=== PATIENT | female | born 1995 | race Caucasian/White ===

== ENCOUNTER 2016-10-18 21:35 | Emergency (ER) | payer MEDICAID ==
[2016-10-18] MEDS ORDERED: diphenhydrAMINE 25 MG CAPSULE PO STA (22:15)
[2016-10-18] MEDS ORDERED: DEXAMETHASONE 10 MG/ML VIAL PO STA (22:15)
[2016-10-18] MEDS ORDERED: CETIRIZINE 10 MG TABLET PO STA (22:15)
[2016-10-18] MEDS ORDERED: DEXAMETHASONE 10 MG/ML VIAL ONE (22:23)
[2016-10-18] MEDS ORDERED: diphenhydrAMINE 25 MG CAPSULE PO ONE (22:23)
[2016-10-18] MEDS ORDERED: CETIRIZINE 10 MG TABLET ONE (22:23)
[2016-10-18] MEDS ORDERED: CHERRY SYRUP 10 ML UDC PO ONE (22:23)
== END 2016-10-18 22:30 | disposition home or self-care (01) ==
DX: O99.711 Diseases of the skin and subcutaneous tissue complicating pregnancy, first trimester (principal); L50.9 Urticaria, unspecified; Z3A.11 11 weeks gestation of pregnancy
CPT/HCPCS: 99283; A9270

== ENCOUNTER 2016-11-05 20:19 | Outpatient (CLI) | payer MEDICAID | END 2016-11-05 20:20 | disposition home or self-care (01) | DX: Z36 Encounter for antenatal screening of mother (principal) ==

== ENCOUNTER 2016-11-27 15:07 | Outpatient (CLI) | payer MEDICAID | END 2016-11-27 15:08 | disposition home or self-care (01) | DX: Z36 Encounter for antenatal screening of mother (principal) ==

== ENCOUNTER 2016-11-29 19:07 | Emergency (ER) | payer MEDICAID ==
[2016-11-29] MEDS ORDERED: ACETAMINOPHEN 325 MG TABLET PO STA (19:22)
[2016-11-29] MEDS ORDERED: ONDANSETRON ODT 4 MG TABLET TL STA (19:22)
[2016-11-29] MEDS ORDERED: ONDANSETRON ODT 4 MG TABLET ONE (19:24)
[2016-11-29] MEDS ORDERED: ACETAMINOPHEN 325 MG TABLET PO ONE (19:25)
== END 2016-11-29 20:17 | disposition home or self-care (01) ==
DX: S30.0XXA Contusion of lower back and pelvis, initial encounter (principal); W01.0XXA Fall on same level from slipping, tripping and stumbling without subsequent striking against object, initial encounter; Y93.01 Activity, walking, marching and hiking; Y92.828 Other wilderness area as the place of occurrence of the external cause; O26.892 Other specified pregnancy related conditions, second trimester; Z3A.17 17 weeks gestation of pregnancy
CPT/HCPCS: 81003; 99283; 99284; A9270; Q0162

== ENCOUNTER 2016-12-24 07:26 | Outpatient (CLI) | payer MEDICAID | END 2016-12-24 07:27 | disposition home or self-care (01) | DX: Z34.82 Encounter for supervision of other normal pregnancy, second trimester (principal) ==

== ENCOUNTER 2017-03-09 14:20 | Outpatient (CLI) | payer MEDICAID ==
[2017-03-09 15:48] LABS: BASOPHILS # (AUTO) 0.1 10^3/uL (0.0-0.1); BASOPHILS % (AUTO) 0.8 %; EOSINOPHILS # (AUTO) 0.1 10^3/uL (0.0-0.7); EOSINOPHILS % (AUTO) 0.6 %; HCT - HEMATOCRIT 33.9 % (37.0-47.0); HGB - HEMOGLOBIN 11.3 g/dL (12.0-16.0); LYMPHOCYTES # (AUTO) 1.7 10^3/uL (1.5-3.5); LYMPHOCYTES % (AUTO) 10.9 %; MEAN CORPUSCULAR HEMOGLOBIN 26.6 pg (27.0-31.0); MEAN CORPUSCULAR HGB CONC 33.2 g/dL (32.0-36.0); MEAN CORPUSCULAR VOLUME 80.2 fL (81.0-99.0); MEAN PLATELET VOLUME 8.1 fL (7.9-10.8); MONOCYTES % (AUTO) 6.3 %; NEUTROPHILS # (AUTO) 12.3 10^3/uL (1.5-6.6); NEUTROPHILS % (AUTO) 81.4 %; RED BLOOD COUNT 4.23 10^6/uL (4.20-5.40); RED CELL DISTRIBUTION WIDTH 13.3 % (12.0-15.0); UNCORRECTED WHITE BLOOD COUNT 15.1 x10^3/uL; WHITE BLOOD COUNT 15.1 x10^3/uL (4.8-10.8)
== END 2017-03-09 14:21 | disposition home or self-care (01) ==
LOC: LAB 14:20
PROVIDERS: ATTEND Obstetrics & Gynecology
DX: Z34.90 Encounter for supervision of normal pregnancy, unspecified, unspecified trimester (principal)
CPT/HCPCS: 36415; 82950; 85025; 86850

== ENCOUNTER 2017-04-11 08:21 | Outpatient (CLI) | payer MEDICAID ==
--- NOTE | 2017-04-12 08:56 | Ultrasound Report ---
OB ULTRASOUND: 04/11/2017 CLINICAL INDICATION: Size greater than dates. TECHNIQUE: Real-time scanning was performed with hardware supplies sales representative static images obtained. LAST MENSTRUAL PERIOD 07/29/2016 Clinical Age 36 weeks 4 days US Age 37 weeks 0 days EFW Hadlock 3260 g EFW% Hadlock 80% Heart Rate 139 bpm EDC 05/05/2017 US EDC 05/02/2017 BPD Hadlock 35 weeks 1 day; Mean mm 87.1 HC Hadlock 37 weeks 3 days; Mean mm 329.3 AC Hadlock 38 weeks 5 days; Mean mm 347.8 FL Hadlock 36 weeks 4 days; Mean mm 71.3 Presentation cephalic Placental Location posterior Cervical Length 4.2 cm Amniotic Fluid 18.4 cm FINDINGS: There is a single viable intrauterine gestation, in cephalic presentation. heart rate is 139 BPM. The placenta is posterior, without evidence of previa. Amniotic fluid volume is normal, with an DEAN of 18.4. By size, the fetus measures 37.0 weeks (36.6 weeks by LMP). No free fluid or adnexal lesion is seen. IMPRESSION: SINGLE VIABLE INTRAUTERINE GESTATION, WITH SIZE IN KEEPING WITH LMP DATING. NORMAL DEAN. MTDD
== END 2017-04-11 08:22 | disposition home or self-care (01) ==
LOC: DI 08:21
PROVIDERS: ATTEND Obstetrics & Gynecology
DX: O36.63X1 Maternal care for excessive fetal growth, third trimester, fetus 1 (principal)
CPT/HCPCS: 76816

== ENCOUNTER 2017-04-12 08:00 | Outpatient (CLI) | payer MEDICAID | END 2017-04-12 23:59 | disposition home or self-care (01) | LOC: LAB.R 08:00 | PROVIDERS: ATTEND Obstetrics & Gynecology | DX: Z36 Encounter for antenatal screening of mother (principal) | CPT/HCPCS: 87081 ==

== ENCOUNTER 2017-05-04 19:13 | Outpatient (CLI) | payer OTHER, MEDICAID ==
[2017-05-04 19:52] VITALS: BP 111/76
--- NOTE | 2017-05-04 22:39 | Ultrasound Preliminary Report ---
Exam: US OB Limited IMPRESSION: 1. Single live intrauterine gestation measuring 39 weeks 3 days with a due date of 05/08/2017. Size e quals dates. 2. Amniotic fluid index is at the upper limits of normal. 3. Biophysical profile score is 8 out of 8. [facility] SITE ID: [id number]
--- NOTE | 2017-05-04 22:40 | Ultrasound Preliminary Report ---
Exam: US OB Biophysical Profile IMPRESSION: 1. Single live intrauterine gestation measuring 39 weeks 3 days with a due date of 05/08/2017. Size e quals dates. 2. Amniotic fluid index is at the upper limits of normal. 3. Biophysical profile score is 8 out of 8. [facility] SITE ID: [id number]
--- NOTE | 2017-05-05 00:46 | Ultrasound Report ---
EXAM: OBSTETRIC ULTRASOUND FOLLOWUP BIOPHYSICAL PROFILE. EXAM DATE: 05/04/2017 08:44 PM. CLINICAL HISTORY: weight assessment. Decreased movement. Amniotic fluid index assessment. COMPARISONS: None. TECHNIQUE: Real-time scanning performed with static images. Both color-flow and Doppler technology we re utilized. FINDINGS: Established due date: 05/08/2017 Estimated gestational age: 39 weeks 3 days. Single live intrauterine gestation is noted in cephalic orientation. Shadowing from the head ob scures visualization of the cervix. heart rate was at 169 BPM. Detailed anatomic assessme nt is not performed at this time. Visualized body parts are without gross abnormality. Amniotic fluid index measures 22.5 cm, at the upper limits of normal. Largest pocket measures 5.5 cm. biometric parameters are relatively concordant. BPD: 9.5 cm, 39.0 weeks 0 days HC: 34.8 cm, OOR weeks AC: 38.9 cm, OOR weeks FL: 7.7 cm, 39.9 weeks 6 days EFW: 4409 gms EFW%: 98% AUA: 39 weeks 3 days JADEN: 05/08/2017 weight is at 98th percentile. BIOPHYSICAL PROFILE: Biophysical profile score is 8 out of 8. IMPRESSION: 1. Single live intrauterine gestation measuring 39 weeks 3 days with a due date of 05/08/2017. Size e quals dates. 2. Amniotic fluid index is at the upper limits of normal. 3. Biophysical profile score is 8 out of 8. [facility] Referring Provider Line: [phone] SITE ID: [id number]
--- NOTE | 2017-05-06 07:15 | HISTORY & PHYSICAL EXAMINATION ---
DATE OF ADMISSION: 05/04/2017 DIAGNOSES 1. Suspected leakage of membranes. 2. A 39-week 3-day gestation. 3. Morbid obesity, BMI 39.3, fundal height exceeds dates. HISTORY OF THE PRESENT ILLNESS: The patient is a 21-year-old primigravida who reports possible leakag e of fluid 2 hours ago. She notes mild or faint contractions. She has no fevers, chills, UTI symptoms or recent illness. She has no signs or symptoms of preeclampsia. She does have difficulty with weight control, and BMI today is calculated at 39.3. She has tried to c ut back but has not been completely successful in terms of food choice and particularly portion contr ol. She is now trying to eat 2 meals a day but tends to snack in between. We discussed the importance of low carbohydrate diet in terms of fuel and personal well being. She was made aware that obesity i ncreases the chances of and overall poor outcome. PHYSICAL EXAMINATION GENERAL: The patient is lying comfortably in bed, attended by her . VITAL SIGNS: Afebrile. HEAD, EYES, EARS, NOSE, AND THROAT: Supple neck. Dentition in good repair. Nonicteric sclerae. EOMI. ABDOMEN: Obese with large pannus; increased liver span, approximately 12 cm, nontender. No splenomega ly. UTERUS: Vertex presentation, acontractile. Estimated weight 8-1/2 to 9-1/2 pounds. EXTERNAL GENITALIA: No lesions. VAGINA: Creamy white physiologic discharge. Fern negative. Nitrazine negative. CERVIX: Closed, long, -2 to 3 station. External heart tones appear category 1, though the variability is only fair. No decelerations. ASSESSMENT: The patient is a primigravida with a larger than average fetus. At the beginning of April, estimated weight was at the 80th percentile. A repeat estimated weight may be enlighteni ng but not completely useful since the patient is well into her last trimester. Cervix is not favorab le at this time. Most studies show that induction to prevent shoulder dystocia and section o ften has no effect or even a negative impact. PLAN 1. Biophysical profile and DEAN today. Possible EFW is time permits. 2. The patient to keep her appointment later this week. JOB #: [id number] EXT JOB #:[id number]
== END 2017-05-04 22:05 | disposition home or self-care (01) ==
LOC: WFO 19:13 → FBP 19:16 → WFO 22:05
PROVIDERS: ATTEND Obstetrics & Gynecology
DX: O36.8130 Decreased fetal movements, third trimester, not applicable or unspecified (principal); O36.63X0 Maternal care for excessive fetal growth, third trimester, not applicable or unspecified; O99.213 Obesity complicating pregnancy, third trimester; E66.01 Morbid (severe) obesity due to excess calories; Z68.39 Body mass index [BMI] 39.0-39.9, adult; Z3A.39 39 weeks gestation of pregnancy
CPT/HCPCS: 76815; 76819; 99214

== ENCOUNTER 2017-05-13 07:52 | Inpatient (IN) | payer OTHER, MEDICAID ==
--- NOTE | 2017-05-13 07:51 | PREOP HISTORY & PHYSICAL ---
DATE OF ADMISSION/SURGERY: 05/13/2017. IDENTIFICATION: This is a 21-year-old G2, P0-0-1-0 with a 40 and 5/7th week intrauterine . EDC is 05/08/2017 confirmed with 11 week ultrasound. HISTORY OF PRESENT ILLNESS: The patient is a patient of [facility] with whom we have been seeing throughout her entire course. She had initially been seen on 10/16/2016 and at 10 weeks gestation. She has been having routine care since then. At today's OB visit patient states that baby johnson Choi is moving well. She denies any vaginal bleeding or loss of fluid. Patient also states that she denied any contractions. Cervical examination showed that the cervix was closed, thick, and high. During this patient's fundal height has been out of proportion to the growth. In March the fundal height began to exceed the gestational age in weeks. In addition, patient's weight gain had significantly increased so that at 22 weeks she had gained 32 pounds and at 34 weeks gestation she had gained 50 pounds. Currently she had gained 64 pounds at 40 weeks gestation. Growth ultrasounds were performed given the size dates discrepancy. On April 11 at 36 weeks gestation the estimated weight was 3260 grams and in the 80th percentile. DEAN was 18.4. A repeat ultrasound at 39 weeks gestation showed the baby was estimated at 4409 grams and in the 98th percentile, DEAN was 22.5 cm. Abdominal circumference was out of range. I discussed with patient given that her cervix is no where near labor and she is beyond her due date, in the face of having significant weight gain during this , and also a suspected macrosomic baby, that it would be in her best interest to undergo a delivery. What I am mainly concerned about is that patient would have a shoulder dystocia causing the potential of permanent nerve paralysis. I discussed with patient the risks, benefits, alternatives, and indications and expectations of a delivery. Included in our discussion were the risks of hemorrhage, infection and damage to surrounding organs. With respect to damage to surrounding organs, this may include, but is not limited to an inadvertent laceration, cauterization or ligation of the adjacent bladder, intestines and ureters. Furthermore, with most hospitals, a repeat delivery would be recommended for other future pregnancies particularly for the suspicion of the indication of macrosomia. After all of patient's questions were answered to her satisfaction she verbalized her desire to proceed with surgery. Consent forms are to be signed on the day of surgery. At today's OB visit patient was doing well, denies any nausea, vomiting, fevers, chills, diarrhea or constipation. PAST MEDICAL HISTORY: None. PAST SURGICAL HISTORY: None. ALLERGIES: NO KNOWN DRUG ALLERGIES. MEDICATIONS: vitamins. She received the flu vaccine on 10/16/2016 and the tetanus diphtheria and acellular pertussis on 03/12/2017. SOCIAL HISTORY: The patient recently stopped smoking during this . She denies any tobacco or alcohol use. Her 's name is Hernesto and he is in the [employer]. This is a male fetus with anticipated name of Jimbo. The patient desires to breastfeed and is anticipating to have one of the pediatricians in the [employer] see Jimbo. PAST OBSTETRICAL HISTORY: One therapeutic . PAST GYNECOLOGICAL HISTORY: She denies any abnormal Pap smears or sexually transmitted diseases. FAMILY HISTORY: Maternal grandmother had breast cancer. REVIEW OF SYSTEMS: Negative unless otherwise stated. OBJECTIVE: VITAL SIGNS: Blood pressure 126/78, height is 66 inches, weight is 277 pounds with a BMI of 44.7. GENERAL: The patient is a well-developed, well-nourished female in no apparent distress. She is alert and oriented x3. HEENT: Within normal limits. CARDIOVASCULAR: Rate is regular. No murmurs or rubs. PULMONARY: Lungs are clear to auscultation bilaterally. ABDOMEN: Gravid, nontender. Fetus is vertex with grossly normal fluid. labs show 10/16/2016 Pap smear with ASCUS H. There was no reflex HPV done. Gonorrhea and chlamydia are both negative. Blood type is A positive, antibody screen is negative. White count is 11.1, H and H 12.0 and 37.3, platelets 247, Rubella equivocal, HIV is negative, as well as RPR. Quad screen is negative x3. anatomical survey is consistent with dates and within normal limits. Cervix measures 4.0 cm with a posterior placenta and a 3-vessel cord. One hour GTT is 100 and same day of 03/09/2017 white count is 15.1, H and H 11.3 and 33.9 and platelets of 291. Antibody screen is negative. Hepatitis B surface antigen is negative. RPR nonreactive. ASSESSMENT: 1. A 21-year-old G2, P0-0-1-0, with a 40 and 5/7th week intrauterine . 2. Suspected macrosomia. 3. Maternal morbid obesity with a significant weight gain of 64 pounds during this . 4. Rubella equivocal. PLAN: 1. Will proceed to a scheduled primary delivery on 05/13/2017. Will have patient sign consents on that day. 2. Patient to get CBC and type and screen in preparation for surgery. 3. I faxed prescriptions to the [facility] for postoperative medications including Ibuprofen, Colace, and acetaminophen. I will deliver a hand-written note for Oxycodone for patient, as well. 4. Anticipate seeing patient later in the week for Prevena wound VAC. 5. Patient to return at 2 and 6 weeks for her respective incision check, as well as a visit. JOB #: [id number] EXT JOB #:[id number] MICKEY
[2017-05-13] MEDS ORDERED: ceFAZolin 2 GM/50 ML 50 ML IV SCH ×2 (11:00→11:33)
[2017-05-13] MEDS ORDERED: LACTATED RINGERS 1,000 ML IV ONE ×3 (11:20→12:52)
[2017-05-13] MEDS ORDERED: CITRIC ACID/SODIUM CITRATE 15 ML UDC PO ONE ×2 (11:21→11:36)
[2017-05-13 11:28] LABS: BASOPHILS # (AUTO) 0.1 10^3/uL (0.0-0.1); BASOPHILS % (AUTO) 0.5 %; EOSINOPHILS # (AUTO) 0.1 10^3/uL (0.0-0.7); EOSINOPHILS % (AUTO) 0.6 %; HCT - HEMATOCRIT 34.2 % (37.0-47.0); HGB - HEMOGLOBIN 11.2 g/dL (12.0-16.0); LYMPHOCYTES # (AUTO) 1.7 10^3/uL (1.5-3.5); LYMPHOCYTES % (AUTO) 11.7 %; MEAN CORPUSCULAR HEMOGLOBIN 24.9 pg (27.0-31.0); MEAN CORPUSCULAR HGB CONC 32.7 g/dL (32.0-36.0); MEAN CORPUSCULAR VOLUME 76.1 fL (81.0-99.0); MEAN PLATELET VOLUME 8.7 fL (7.9-10.8); MONOCYTES # (AUTO) 0.9 10^3/uL (0.0-1.0); MONOCYTES % (AUTO) 6.4 %; NEUTROPHILS # (AUTO) 11.8 10^3/uL (1.5-6.6); NEUTROPHILS % (AUTO) 80.8 %; RED CELL DISTRIBUTION WIDTH 15.4 % (12.0-15.0); UNCORRECTED WHITE BLOOD COUNT 14.6 x10^3/uL; WHITE BLOOD COUNT 14.6 x10^3/uL (4.8-10.8)
[2017-05-13] MEDS ORDERED: SODIUM CHLORIDE FLUSH 0.9% 10 ML SYRINGE IVP PRN (11:33)
[2017-05-13] MEDS: LACTATED RINGERS 1,000 ML IV SCH (11:58)
[2017-05-13] MEDS ORDERED: ACETAMINOPHEN 1,000 MG/100 ML VIAL IV ONE (13:10)
[2017-05-13] MEDS ORDERED: ONDANSETRON 4 MG/2 ML VIAL IVP ONE (13:10)
[2017-05-13] MEDS ORDERED: PHENYLEPHRINE 10 MG/ML VIAL IV ONE (13:10)
[2017-05-13] MEDS ORDERED: ePHEDrine 50 MG/ML AMP IVP ONE (13:10)
[2017-05-13] MEDS ORDERED: KETOROLAC 30 MG/ML VIAL IVP ONE (13:10)
[2017-05-13] MEDS ORDERED: fentaNYL 100 MCG/2 ML VIAL IVP ONE (13:10)
[2017-05-13] MEDS ORDERED: MORPHINE PF 5 MG/10 ML AMP EP ONE (13:10)
[2017-05-13] MEDS ORDERED: METOCLOPRAMIDE 10 MG/2 ML VIAL IVP ONE (13:10)
[2017-05-13] MEDS ORDERED: OXYTOCIN 10 UNIT/ML VIAL IV ONE (13:10)
[2017-05-13] MEDS ORDERED: ONDANSETRON 4 MG/2 ML VIAL IVP PRN (14:05)
[2017-05-13] MEDS ORDERED: MAGNESIUM HYDROXIDE 2,400 MG/30 ML UDC PO PRN (14:05)
--- NOTE | 2017-05-13 14:05 | OPERATIVE REPORT ---
Operative Report - General Admit Date: 05/13/17 - Other Other Information/Narrative: Date of Operation: 05/13/2017 Surgeon: Niki Pandey DO FACOG [employer] Ready Worker: Timbo Ernst MD FACOG Anesthesiologist: Iwona Alvarado MD Anesthesia: Spinal Pre-op Dx: 1. 21 yo with a 40w5d IUP 2. Suspected macrosomia 3. Excessive maternal weight gain 4. Cervix remote from delivery Post-op Dx: 1. 21 yo with a 40w5d IUP 2. Suspected macrosomia 3. Excessive maternal weight gain 4. Cervix remote from delivery Procedure: Primary Delivery Findings: Viable male fetus named Jimbo, VTX. Apgars 9/9, weight 9 lbs, 6 oz or 4255 gm. Normal uterus, ovaries and fallopian tubes. Specimens: 1. Cord blood (to lab) 2. Placenta (to pathology) Drains: 1. Quintanilla to gravity 2. Prevena wound vac EBL: 500 mL Complications: None Dictation number: [id number]
[2017-05-13] MEDS: OXYTOCIN/LACTATED RINGERS 250 ML IV SCH ×2 (14:32→19:40)
--- NOTE | 2017-05-13 14:47 | OPERATIVE REPORT ---
DATE OF SURGERY: 05/13/2017 00:00:00 PREOPERATIVE DIAGNOSES 1. A 21 -year-old G2, P0-0-1-0 with a 40-5/7 week intrauterine . 2. Suspected macrosomia. 3. Excessive maternal weight gain. 4. Cervix remote from delivery. POSTOPERATIVE DIAGNOSES 1. A 21 -year-old G2, P0-0-1-0 with a 40-5/7 week intrauterine . 2. Suspected macrosomia. 3. Excessive maternal weight gain. 4. Cervix remote from delivery. NAME OF PROCEDURE: Primary delivery. SURGEON: Niki Pandey DO SECURITY SYSTEMS INTEGRATOR: Timbo Ernst MD ANESTHESIOLOGIST: Iwona Alvarado MD ANESTHESIA: Spinal. FINDINGS: A viable male fetus in vertex presentation named Jimbo. Apgars were 9 and 9 at 1 and 5 minutes respectively. Weight is 9 pounds 6 ounces, 4255 g. Normal uterus, fallopian tubes, and ovaries. SPECIMENS 1. Cord blood to lab. 2. Placenta to pathology. DRAINS 1. Quintanilla catheter to gravity. 2. Prevena wound VAC. ESTIMATED BLOOD LOSS: 500 mL. COMPLICATIONS: None. BRIEF HISTORY: The patient is a patient of [facility] who we have been seeing throughout her entire course. She has been measuring size greater than dates and recent ultrasound showed that the baby was measuring in the 98th percentile. In addition, the patient had gained 64 pounds during this and her most recent cervical examination showed that she was closed, thick and high. Her 1-hour GTT, however, was within normal limits. Given her excessive maternal weight gain and suspected macrosomia, I recommended her to undergo primary delivery. I explained to the patient the risks, benefits, alternatives, indications, and expectations of surgery. Included in our discussion were the risks of hemorrhage, infection, damage to surrounding organs which may include, but is not limited to, inadvertent laceration, cauterization or ligation of adjacent intestines, ureters, and bladder. Furthermore, with a delivery for suspected macrosomia, she would be a poor candidate for and will most likely will need to have a repeat delivery for future pregnancies. After her questions were answered to her satisfaction, she verbalized her desire to proceed with surgery. Consent forms have been signed. OPERATION IN DETAIL: The patient was identified, consented, and taken to the operating room where IV access was already in place. She was then given satisfactory spinal anesthesia per Dr. Iwona Alvarado. Sequential compression devices were placed on the lower extremities and turned on. A Quintanilla catheter was placed into the bladder, and then she was prepped and draped in a normal sterile fashion in the dorsal supine position with a leftward tilt. The patient was given 2 g of cefazolin IV for postoperative cellulitis prophylaxis. A timeout was performed, which correctly identified the patient, site of procedure , and the procedure itself. Repeat skin testing showed that she had satisfactory pain control. A Pfannenstiel skin incision was made approximately 2 fingerbreadths above the level of the pubic symphysis. This was carried to the underlying layer of fascia with electrocautery. The fascia was then nicked in the midline and extended laterally. Rectus muscles were then dissected off the fascia. The rectus muscles were then bluntly in the midline and the peritoneum entered bluntly as well. A bladder flap was created by dissecting off the vesicouterine peritoneum. Inspection of the uterus showed that the uterus was actually very thin as if she were in active labor. The head was very high, however, above the pelvic outlet. The hysterotomy was made in the lower uterine segment in a transverse fashion. Amniotomy revealed clear fluid. With the help of fundal pressure, the delivered easily without difficulty through the hysterotomy. The nose and mouth were suctioned with a bulb syringe. Again with the help of fundal pressure, the rest of the infant delivered through the hysterotomy. Again, the nose and mouth were suctioned with the bulb syringe. The umbilical cord was doubly clamped and cut, and the was then handed off to the OB nurses. The uterus was then internally massaged and placenta delivered manually. The uterus was then delivered out of the uterus and cleared of all clots and debris. Hysterotomy was closed with a running suture of 0 Vicryl in a running locked fashion. A second stitch using 0 Vicryl in the Lembert stitch was then used to imbricate the uterus. Inspection of the adnexa and uterus found them to be within normal limits. The abdomen was then copiously irrigated and the uterus returned to the abdomen. The abdomen as then copiously irrigated and found to be hemostatically stable. The peritoneum was closed with a running stitch of 2-0 Vicryl. The same stitch was used to reapproximate the rectus muscle. Fascia was then reapproximated with 0 Vicryl in a running fashion. Subcuticular tissue was then reapproximated with single interrupted stitches of 0 Vicryl. Skin was then closed with 4-0 Monocryl in a subcuticular fashion. Prevena wound VAC was then placed on top of the incision. The patient tolerated the procedure well and was taken back to the recovery room in stable and awake condition. All sponge, lap and needle counts were correct x 2 as per nurse report. She will be given routine care including SCDs until she ambulates, and around the clock Celebrex, Tylenol and oxycodone. I will anticipate her going home on 05/15/2017. JOB #: [id number] EXT JOB #:[id number] MTDNicho
[2017-05-13] MEDS ORDERED: MEASLES,MUMPS & RUBELLA VACC 0.5 ML VIAL SUBQ ONE (15:15)
[2017-05-13] MEDS: ACETAMINOPHEN 500 MG TABLET PO SCH (16:17)
[2017-05-13] MEDS: oxyCODONE 5 MG TABLET PO SCH ×2 (16:18→20:32)
[2017-05-13] MEDS: SODIUM CHLORIDE FLUSH 0.9% 10 ML SYRINGE IVP SCH (16:31)
[2017-05-13] MEDS ORDERED: SODIUM CHLORIDE FLUSH 0.9% 10 ML SYRINGE IVP ONE (19:21)
[2017-05-13] MEDS: DOCUSATE SODIUM 100 MG CAPSULE PO SCH (20:32)
[2017-05-13] MEDS: CELECOXIB 100 MG CAPSULE PO SCH (20:33)
[2017-05-14] MEDS: ACETAMINOPHEN 500 MG TABLET PO SCH ×3 (00:16→15:18)
[2017-05-14] MEDS: SIMETHICONE CHEW 80 MG TABLET PO SCH ×4 (00:16→21:31)
[2017-05-14] MEDS: oxyCODONE 5 MG TABLET PO SCH ×5 (00:16→21:25)
--- NOTE | 2017-05-14 08:31 | PROVIDER PROGRESS NOTE ---
Subjective - Prog Note Date Prog Note Date: 05/14/17 Prog Note Time: 08:29 - Subjective Pt reports feeling: Improved Subjective: Patient resting in bed. Quintanilla out, SCD's still on. Ate breakfast, has ambulated. in the glider, holding baby. Tere not breast feeding, soley bottle feeding. No nausea or vomiting. Normal lochia. Pain controlled. Objective - Vital Signs/Intake & Output Reviewed Vital Signs: Yes Vital Signs: Vital Signs x48h Temp Pulse Resp BP Pulse Ox 05/14/17 04:37 98.1 F 85 18 129/65 95 05/14/17 00:39 97.5 F L 83 18 107/68 95 Intake & Output: Intake & Output 05/11/17 05/12/17 05/13/17 05/14/17 23:59 23:59 23:59 23:59 Intake Total 850 100 Output Total 1340 825 Balance -490 -725 - Objective General Appearance: positive: No acute distress Abdomen: positive: Non-tender (Prevena wound vac intact and working well. Instructions for wound vac care given to the patient.) Skin: positive: Color nml Neurologic/Psychiatric: positive: Oriented x3 - Lab Results Fish Bones: 05/13/17 11:15 Other Labs: Lab Results x24hrs 05/13/17 05/13/17 Range/Units 11:15 11:15 WBC 14.6 H (4.8-10.8) x10^3/uL RBC 4.50 (4.20-5.40) 10^6/uL Hgb 11.2 L (12.0-16.0) g/dL Hct 34.2 L (37.0-47.0) % MCV 76.1 L (81.0-99.0) fL MCH 24.9 L (27.0-31.0) pg MCHC 32.7 (32.0-36.0) g/dL RDW 15.4 H (12.0-15.0) % Plt Count 302 (130-450) 10^3/uL MPV 8.7 (7.9-10.8) fL Neut # 11.8 H (1.5-6.6) 10^3/uL Lymph # 1.7 (1.5-3.5) 10^3/uL [place] # 0.9 (0.0-1.0) 10^3/uL Eos # 0.1 (0.0-0.7) 10^3/uL Baso # 0.1 (0.0-0.1) 10^3/uL Absolute Nucleated RBC 0.00 x10^3/uL Nucleated RBCs 0.0 /100WBC Blood Type A POSITIVE Antibody Screen NEGATIVE Assessment/Plan - Problem List (1) delivery delivered Impression: 21 yo S/p delivery 05/13/2017, POD #1 Normal recovery Routine care Remove saline lock Shower and ambulate today Anticipate discharge tomorrow
[2017-05-14] MEDS: CELECOXIB 100 MG CAPSULE PO SCH ×2 (09:06→21:24)
[2017-05-14] MEDS: CETIRIZINE 10 MG TABLET PO SCH (09:06)
[2017-05-14] MEDS: DOCUSATE SODIUM 100 MG CAPSULE PO SCH ×2 (09:08→21:24)
--- NOTE | 2017-05-14 10:48 | DISCHARGE SUMMARY ---
DATE OF ADMISSION: 05/13/2017 DATE OF DISCHARGE: 05/15/2017 DIAGNOSES ON ADMISSION 1. A 21-year-old G2, P0-0-1-0 with a 40-week 5-day intrauterine . 2. Suspected macrosomia. 3. Excessive maternal weight gain. DIAGNOSES ON DISCHARGE 1. A 21-year-old G2, P1-0-1-1 status post primary delivery on 2016. 2. Normal recovery. BRIEF HISTORY: This is a patient of [facility] with whom we have been seeing throughout her entire course. Her has been remarkable for maternal weight gain of 64 pounds. In addition, the baby has been noted to be growing larger than his anticipated gestational age. The patient had an ultrasound revealing that the baby had an estimated weight of 4400 grams and in the 98th percentile. In the face of suspected macrosomia, excessive maternal weight gain, a gestational age of 40 weeks with a cervix remote from delivery, I recommended the patient to undergo a primary delivery. After satisfactory counseling regarding the risks, benefits, terms, indications, expectations of surgery, she agreed to proceed with the operative delivery. On 05/13/2017, she delivered a viable male named Jimbo. Apgars were 9 and 9 and 1 and 5 minutes respectively. He weighed 9 pounds 6 ounces. Surgery went well. There were no complications. The patient did receive a Prevena wound VAC. Her postoperative course has been unremarkable. She has been ambulating and tolerating a regular diet. She is urinating without difficulty and her pain is controlled with oral medications. She will be discharged to home on 05/15/2017 on postoperative day #2. Prescriptions have already been sent to the [facility] for ibuprofen, acetaminophen, and Colace. She will be given a prescription for oxycodone for any breakthrough pain that she may have. She is to see me next week for removal of the Prevena wound VAC and in 2 weeks for an incision check. Finally, she is to see me in 6 weeks for a routine visit, in which we will discuss control. She is to call should she have any worsening fevers, chills, abdominal pain, or vaginal bleeding. JOB #: [id number] EXT JOB #:[id number] MICKEY
[2017-05-14] MEDS: LACTATED RINGERS 1,000 ML IV SCH ×3 (20:48→20:51)
[2017-05-14] MEDS: OXYTOCIN/LACTATED RINGERS 250 ML IV SCH (20:49)
[2017-05-14] MEDS: SODIUM CHLORIDE FLUSH 0.9% 10 ML SYRINGE IVP SCH (20:49)
[2017-05-15] MEDS: ACETAMINOPHEN 500 MG TABLET PO SCH ×2 (03:01→13:05)
[2017-05-15] MEDS: oxyCODONE 5 MG TABLET PO SCH ×3 (03:01→13:04)
[2017-05-15 08:12] VITALS: BP 123/72
[2017-05-15] MEDS: CELECOXIB 100 MG CAPSULE PO SCH (08:28)
[2017-05-15] MEDS: DOCUSATE SODIUM 100 MG CAPSULE PO SCH (08:29)
[2017-05-15] MEDS: CETIRIZINE 10 MG TABLET PO SCH (08:29)
[2017-05-15] MEDS: SIMETHICONE CHEW 80 MG TABLET PO SCH (08:29)
--- NOTE | 2017-05-15 12:00 | PROVIDER PROGRESS NOTE ---
Subjective - Prog Note Date Prog Note Date: 05/15/17 Prog Note Time: 11:57 - Subjective Pt reports feeling: Improved Subjective: Patient dressed in street clothes. Doing well and without complaints. Hernesto feeding baby. No nausea, vomiting, fevers or chills. Urinating without difficulty. Pain improved today; doing well on PO meds. Lochia improving. Desires to go home. Objective - Vital Signs/Intake & Output Reviewed Vital Signs: Yes Vital Signs: Vital Signs x48h Temp Pulse Resp BP Pulse Ox 05/15/17 08:08 99.1 F 96 16 123/72 97 Intake & Output: Intake & Output 05/12/17 05/13/17 05/14/17 05/15/17 23:59 23:59 23:59 23:59 Intake Total 850 600 Output Total 1340 1725 Balance -490 -5645 - Objective General Appearance: positive: No acute distress Eyes Bilateral: positive: Normal inspection Abdomen: positive: Non-tender (Prevena wound vac in place and working well) Neurologic/Psychiatric: positive: Oriented x3 - Lab Results Fish Bones: 05/13/17 11:15 Assessment/Plan - Problem List (1) delivery delivered Impression: 28 yo S/p primary CD 05/13/2017 Normal recovery Discharge to home Rx for oxycodone, tylenol, motrin and colace Follow up with me next week for Prevena wound vac Return for routine 2 week and 6 week incision and post op checks Call if worsening fevers, chills, abdominal pain or vaginal bleeding Discharge Plan Disposition: 01 Home, Self Care Condition: Good Diet: Regular Activity Restrictions: No lifting >10 lbs Shower Restrictions: No Driving Restrictions: Yes (No driving x 2 weeks) Weight Bearing: Full Weight No Smoking: If you smoke, Please STOP! Call for help.
[2017-05-15] MEDS ORDERED: MEASLES,MUMPS & RUBELLA VACC 0.5 ML VIAL SUBQ ONE (13:00)
== END 2017-05-15 13:50 | disposition home or self-care (01) | DRG 765 ==
LOC: UNDOADMIN 07:52 → FBP 07:52
PROVIDERS: ADMIT Obstetrics & Gynecology; ATTEND Obstetrics & Gynecology
PROC: 10D00Z1 Extraction of Products of Conception, Low, Open Approach (ICD-10-PCS; principal; 2017-05-13 12:00)
DX: O36.63X0 Maternal care for excessive fetal growth, third trimester, not applicable or unspecified (principal); Z68.41 Body mass index [BMI] 40.0-44.9, adult; O26.03 Excessive weight gain in pregnancy, third trimester; O99.334 Smoking (tobacco) complicating childbirth; Z3A.40 40 weeks gestation of pregnancy; Z37.0 Single live birth
CPT/HCPCS: 36415; 85025; 86850; 86900; 86901

== ENCOUNTER 2017-05-18 12:05 | Emergency (ER) | payer OTHER, MEDICAID ==
--- NOTE | 2017-05-18 13:04 | ED Physician Documentation ---
History of Present Illness - Stated complaint Stated Complaint: WOUND VAC - Chief complaint Chief Complaint: Wound - History obtained from History obtained from: Patient, Family - History of Present Illness Timing: Yesterday Pain level max: 4 Pain level now: 0 Quality: sharp Improved by: rest - Additonal information Additional information: occasional sharp pain to the L side of the incision. No drainage. Tripped on wound vac cord yesterday. No fever. Wound vac still maintaining suction. Review of Systems Constitutional: denies: Fever, Chills GI: denies: Nausea, Vomiting, Diarrhea, Hematemesis : reports: Vaginal bleeding (decreasing) Skin: denies: Rash Musculoskeletal: denies: Neck pain, Back pain PD PAST MEDICAL HISTORY - Past Medical History Cardiovascular: None Respiratory: Asthma Neuro: None Endocrine/Autoimmune: None GI: None MANAGER SUPPORT SERVICES: None : None HEENT: None Psych: None Derm: None - Past Surgical History Past Surgical History: Yes /MANAGER SUPPORT SERVICES: section - Present Medications Home Medications: Ambulatory Orders Medication Instructions Recorded Confirmed Ibuprofen 1 tab PO QID PRN 05/18/17 05/18/17 Oxycodone HCl/Acetaminophen 1 tab PO QID 05/18/17 05/18/17 [Oxycodone-Acetaminophen 5-325] - Allergies Allergies/Adverse Reactions: Allergies Allergy/AdvReac Type Severity Reaction Status Date / Time No Known Drug Allergies Allergy Verified 05/18/17 12:12 - Social History Does the pt smoke?: No Smoking Status: Never smoker Does the pt drink ETOH?: No Does the pt have substance abuse?: No - Immunizations Immunizations are current?: Yes - POLST Patient has POLST: No PD ED PE NORMAL - Vitals Vital signs reviewed: Yes - General General: Alert and oriented X 3, No acute distress - Neck Neck: Supple, no meningeal sign - Cardiac Cardiac: RRR - Respiratory Respiratory: No respiratory distress, Clear bilaterally - Abdomen Abdomen: Soft, Non tender, Non distended, Other (wound vac in place. no signs of infection) - Derm Derm: Warm and dry - Neuro Neuro: Alert and oriented X 3 - Psych Psych: Normal mood, Normal affect Results - Vitals Vitals: Vital Signs - 24 hr 05/18/17 05/18/17 12:09 13:55 Temperature 36.0 C L Heart Rate 74 78 Respiratory 16 14 Rate Blood Pressure 137/93 H 128/79 O2 Saturation 100 99 Oxygen O2 Source Room air PD MEDICAL DECISION MAKING - ED course Complexity details: re-evaluated patient, considered differential, d/w patient, d/w distributed energy systems consultant (1300 - Dr. 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 She has no pain currently. She is well-appearing, nontoxic. No signs of infection. Wound VAC is working. Discussed the case with Dr. Maldonado, OB on-call, who recommends follow-up in the clinic on Saturday. No other interventions at this time. Patient counseled regarding signs and symptoms for which I believe and urgent re-evaluation would be necessary. Patient with good understanding of and agreement to plan and is comfortable going home at this time This document was made in part using voice recognition software. While efforts are made to proofread this document, sound alike and grammatical errors may occur. Departure - Departure Disposition: 01 Home, Self Care Clinical Impression: Encounter for management of vacuum-assisted closure (VAC) of wound Condition: Good Instructions: ED Wound Check Post Op No Infec Follow-Up: Niki Pandey, DO [Provider Admit Priv/Credential] - 05/20/17 Comments: Return if you worsen. You should improve over the next two days. Return if the wound vac is not working or you are noticing drainage from the wound. Discharge Date/Time: 05/18/17 14:00
[2017-05-18 14:20] VITALS: BP 128/79
== END 2017-05-18 14:00 | disposition home or self-care (01) ==
LOC: ED 12:05
DX: Z76.89 Persons encountering health services in other specified circumstances (principal); J45.909 Unspecified asthma, uncomplicated
CPT/HCPCS: 99283

== ENCOUNTER 2018-10-11 18:03 | Emergency (ER) | payer OTHER, MEDICAID ==
[2018-10-11 18:10] VITALS: BP 117/73
--- NOTE | 2018-10-11 18:48 | ED Physician Documentation ---
PD HPI HEENT - Stated complaint Stated Complaint: SINUS PX/ROSSY - Chief complaint Chief Complaint: Heent - History obtained from History obtained from: Patient - History of Present Illness Timing - onset: Other (2 days she has had itchy watery eyes, nasal congestion and facial pressure without fevers or chills. No significant sore throat or cough. No possibility of .) Review of Systems Constitutional: denies: Fever, Chills Eyes: reports: Discharge. denies: Loss of vision, Decreased vision, Photophobia Ears: denies: Loss of hearing, Ear pain Nose: reports: Rhinorrhea / runny nose, Congestion, Sinus pressure / pain Throat: denies: Sore throat PD PAST MEDICAL HISTORY - Past Medical History Cardiovascular: None Respiratory: None Endocrine/Autoimmune: None GI: None SURVEY MANAGER: None : None HEENT: None Psych: None Derm: None - Past Surgical History Past Surgical History: Yes /SURVEY MANAGER: section - Present Medications Home Medications: Ambulatory Orders Medication Instructions Recorded Confirmed Ibuprofen 1 tab PO QID PRN 05/18/17 05/18/17 Guaifenesin/Pseudoephedrne HCl 1 each PO BID PRN #20 tab.er.12h 10/11/18 [Mucinex D ER 600-60 mg Tablet] Mometasone Furoate [Nasonex] 1 spray NS BID #1 spray.pump 10/11/18 Naphazoline HCl/Pheniramine 1 drops OP BID #1 bot 10/11/18 [Naphcon-A Eye Drops] - Allergies Allergies/Adverse Reactions: Allergies Allergy/AdvReac Type Severity Reaction Status Date / Time No Known Drug Allergies Allergy Verified 10/11/18 18:08 - Social History Does the pt smoke?: No Smoking Status: Current some day smoker Does the pt drink ETOH?: No Does the pt have substance abuse?: No - Immunizations Immunizations are current?: Yes - POLST Patient has POLST: No PD ED PE NORMAL - Vitals Vital signs reviewed: Yes - General General: Alert and oriented X 3, No acute distress - HEENT HEENT: PERRL, EOMI, Ears normal, Other (Her pharynx is normal. She has watery eyes but no conjunctivitis.) - Neck Neck: Supple, no meningeal sign, No bony TTP - Cardiac Cardiac: RRR, No murmur - Respiratory Respiratory: No respiratory distress, Clear bilaterally - Abdomen Abdomen: Non tender - Derm Derm: Normal color, Warm and dry, No rash - Neuro Neuro: Alert and oriented X 3, Normal speech Results - Vitals Vitals: Vital Signs - 24 hr 10/11/18 18:04 Temperature 36.4 C L Heart Rate 90 Respiratory 18 Rate Blood Pressure 117/73 O2 Saturation 98 Oxygen O2 Source Room air Departure - Departure Disposition: Home, Self Care Clinical Impression: Viral URI Condition: Good Record reviewed to determine appropriate education?: Yes Instructions: ED Viral Syndrome Prescriptions: Guaifenesin/Pseudoephedrne HCl [Mucinex D ER 600-60 mg Tablet] 1 each PO BID PRN #20 tab.er.12h PRN Reason: congestion Mometasone Furoate [Nasonex] 1 spray NS BID #1 spray.pump Naphazoline HCl/Pheniramine [Naphcon-A Eye Drops] 1 drops OP BID #1 bot Comments: Call your doctor to arrange a follow-up appointment, make the next available appointment. In the interim, return anytime if worse or if new symptoms develop.
== END 2018-10-11 18:52 | disposition home or self-care (01) ==
LOC: ED 18:03
DX: J06.9 Acute upper respiratory infection, unspecified (principal); B97.89 Other viral agents as the cause of diseases classified elsewhere; F17.200 Nicotine dependence, unspecified, uncomplicated
CPT/HCPCS: 99283

== ENCOUNTER 2020-02-20 17:14 | Emergency (ER) | payer MEDICAID, OTHER ==
[2020-02-20] MEDS ORDERED: ALBUTEROL NEB 2.5 MG/3 ML INH STA (17:41)
--- NOTE | 2020-02-20 17:51 | ED Physician Documentation ---
History of Present Illness - Stated complaint Stated Complaint: CP/SOA - Chief complaint Chief Complaint: Cardiac - History obtained from History obtained from: Patient - History of Present Illness Timing: How many days ago (2) Pain level max: 9 Pain level now: 4 - Additonal information Additional information: Patient is a 24-year-old female who states she has had chest pain for the past 2 days. Seems to be worse with exertion and better with rest. She states it feels like her chest is tight. She smokes approximately one quarter of a pack per day of cigarettes. Decided to try to go for a run today and the pain became worse. Came in for evaluation. No fever. No cough. She is not , breast-feeding or trying to become . No recent surgery, travel, or immobilization. 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 : None HEENT: None Psych: None Derm: None - Past Surgical History Past Surgical History: Yes /CAFE OPERATOR: section - Present Medications Home Medications: Ambulatory Orders Medication Instructions Recorded Confirmed Ibuprofen 1 tab PO QID PRN 05/18/17 05/18/17 Guaifenesin/Pseudoephedrne HCl 1 each PO BID PRN #20 tab.er.12h 10/11/18 [Mucinex D ER 600-60 mg Tablet] Mometasone Furoate [Nasonex] 1 spray NS BID #1 spray.pump 10/11/18 Naphazoline HCl/Pheniramine 1 drops OP BID #1 bot 10/11/18 [Naphcon-A Eye Drops] Albuterol Sulfate [Proair Hfa 1 - 2 puffs INH Q4H PRN #1 inhaler 02/20/20 Inhaler] - Allergies Allergies/Adverse Reactions: Allergies Allergy/AdvReac Type Severity Reaction Status Date / Time No Known Drug Allergies Allergy Verified 02/20/20 17:23 - Social History Does the pt smoke?: No Smoking Status: Current some day smoker Does the pt drink ETOH?: No Does the pt have substance abuse?: No - Immunizations Immunizations are current?: Yes - POLST Patient has POLST: No PD ED PE NORMAL - Vitals Vital signs reviewed: Yes - General General: Alert and oriented X 3, No acute distress - HEENT HEENT: Moist mucous membranes - Neck Neck: Supple, no meningeal sign - Cardiac Cardiac: RRR, Strong equal pulses - Respiratory Respiratory: No respiratory distress, Clear bilaterally - Abdomen Abdomen: Soft, Non tender, Non distended - Back Back: No CVA TTP, No spinal TTP - Derm Derm: Warm and dry - Extremities Extremities: No edema, No calf tenderness / cord - Neuro Neuro: Alert and oriented X 3 - Psych Psych: Normal mood, Normal affect Results - Vitals Vitals: Vital Signs - 24 hr 02/20/20 02/20/20 02/20/20 17:20 17:23 18:00 Temperature 37.2 C 36.8 C Heart Rate 82 85 68 Respiratory 16 16 16 Rate Blood Pressure 144/81 H 145/65 H O2 Saturation 98 99 02/20/20 18:37 Temperature 36.8 C Heart Rate 70 Respiratory 16 Rate Blood Pressure 132/68 H O2 Saturation 99 Oxygen O2 Source Room air - EKG (time done) 1736 Rate: Rate (enter#) (72) Rhythm: NSR [place]: Normal Intervals: Normal MS QRS: Normal Ischemia: Normal ST segments - Labs Labs: Laboratory Tests 02/20/20 02/20/20 02/20/20 17:45 17:45 17:45 WBC 10.1 RBC 4.47 Hgb 12.9 Hct 40.5 MCV 90.6 MCH 28.9 MCHC 31.9 L RDW 13.2 Plt Count 228 MPV 11.0 H Neut # (Auto) 7.1 H Lymph # (Auto) 2.1 [place] # (Auto) 0.7 Eos # (Auto) 0.1 Baso # (Auto) 0.1 Absolute Nucleated RBC 0.00 Nucleated RBC % 0.0 D-Dimer < 200.0 L Sodium 138 Potassium 3.6 Chloride 103 Carbon Dioxide 24 Anion Gap 11.0 BUN 15 Creatinine 0.6 Estimated GFR (MDRD) 123 Glucose 92 Calcium 9.0 Total Bilirubin 0.8 AST 21 ALT 17 Alkaline Phosphatase 48 Troponin I High Sens Total Protein 7.6 Albumin 4.6 Globulin 3.0 Albumin/Globulin Ratio 1.5 Lipase 26 02/20/20 17:45 WBC RBC Hgb Hct MCV MCH MCHC RDW Plt Count MPV Neut # (Auto) Lymph # (Auto) [place] # (Auto) Eos # (Auto) Baso # (Auto) Absolute Nucleated RBC Nucleated RBC % D-Dimer Sodium Potassium Chloride Carbon Dioxide Anion Gap BUN Creatinine Estimated GFR (MDRD) Glucose Calcium Total Bilirubin AST ALT Alkaline Phosphatase Troponin I High Sens < 2.3 L Total Protein Albumin Globulin Albumin/Globulin Ratio Lipase - Rads (name of study) cxr Radiology: Prelim report reviewed, EMP read contemporaneously, See rad report (normal) PD MEDICAL DECISION MAKING - ED course Complexity details: reviewed results, re-evaluated patient, considered differential, d/w patient ED course: Patient feels better after albuterol treatment. No evidence of pulmonary embolus. No evidence of acute coronary syndrome. No pneumothorax. She is very well-appearing, nontoxic. Afebrile. No hypoxia. No respiratory distress. Patient counseled regarding signs and symptoms for which I believe and urgent re-evaluation would be necessary. Patient with good understanding of and agreement to plan and is comfortable going home at this time This document was made in part using voice recognition software. While efforts are made to proofread this document, sound alike and grammatical errors may occur. Departure - Departure Disposition: 01 Home, Self Care Clinical Impression: Atypical chest pain, Pleurisy Condition: Good Instructions: ED Chest Pain Atypical Unkn Cause, ED Chest Pain Pleurisy Follow-Up: your,doctor in 1 week [Other] Prescriptions: Albuterol Sulfate [Proair Hfa Inhaler] 1 - 2 puffs INH Q4H PRN #1 inhaler PRN Reason: Shortness Of Air/Wheezing Comments: Follow-up with your doctor for further care. Return if you worsen. You can use Motrin or Tylenol as needed for pain. Will prescribe an inhaler as well. Discharge Date/Time: 02/20/20 18:39
[2020-02-20 17:53] LABS: BASOPHILS # (AUTO) 0.1 10^3/uL (0.0-0.1); BASOPHILS % (AUTO) 0.6 %; EOSINOPHILS # (AUTO) 0.1 10^3/uL (0.0-0.7); EOSINOPHILS % (AUTO) 0.5 %; HGB - HEMOGLOBIN 12.9 g/dL (12.0-16.0); LYMPHOCYTES # (AUTO) 2.1 10^3/uL (1.5-3.5); LYMPHOCYTES % (AUTO) 21.1 %; MEAN CORPUSCULAR HEMOGLOBIN 28.9 pg (27.0-31.0); MEAN CORPUSCULAR HGB CONC 31.9 g/dL (32.0-36.0); MEAN CORPUSCULAR VOLUME 90.6 fL (81.0-99.0); MONOCYTES # (AUTO) 0.7 10^3/uL (0.0-1.0); MONOCYTES % (AUTO) 6.7 %; NEUTROPHILS # (AUTO) 7.1 10^3/uL (1.5-6.6); NEUTROPHILS % (AUTO) 70.8 %; PLT - PLATELET COUNT 228 10^3/uL (130-450); RED BLOOD COUNT 4.47 10^6/uL (4.20-5.40); RED CELL DISTRIBUTION WIDTH 13.2 % (12.0-15.0); WHITE BLOOD COUNT 10.1 x10^3/uL (4.8-10.8)
[2020-02-20 18:09] LABS: ALBUMIN 4.6 g/dL (3.2-5.5); ALBUMIN/GLOBULIN RATIO 1.5 (1.0-2.2); BILIRUBIN,TOTAL 0.8 mg/dL (0.2-1.0); CREATININE 0.6 mg/dL (0.4-1.0); TOTAL PROTEIN 7.6 g/dL (6.7-8.2)
--- NOTE | 2020-02-20 18:10 | XRAY Report ---
Reason: Chest Pain Procedure Date: 02/20/2020 Accession Number: [id number] / [id number] Procedure: XR - Chest 1 View X-Ray CPT Code: 43738 Final Report FULL RESULT: EXAM: CHEST RADIOGRAPHY EXAM DATE: 02/20/2020 05:38 PM. CLINICAL HISTORY: Chest Pain. COMPARISON: None. TECHNIQUE: 1 view. FINDINGS: Lungs/Pleura: No focal opacities evident. No pleural effusion. No pneumothorax. Mediastinum: Within exam limitations, the cardiomediastinal contour is normal. Other: None. IMPRESSION: No acute findings. RADIA
[2020-02-20 18:39] VITALS: BP 132/68
== END 2020-02-20 18:39 | disposition home or self-care (01) ==
LOC: ED 17:14
DX: R07.89 Other chest pain (principal); R09.1 Pleurisy; F17.210 Nicotine dependence, cigarettes, uncomplicated
CPT/HCPCS: 36415; 71045; 80053; 83690; 84484; 85025; 85379; 93005; 99284

== ENCOUNTER 2022-07-02 17:39 | Emergency (ER) | payer OTHER, MEDICAID ==
[2022-07-02 17:50] VITALS: BP 148/83
[2022-07-02] MEDS ORDERED: IBUPROFEN 800 MG TABLET PO STA (19:30)
[2022-07-02] MEDS ORDERED: HYDROcod/ACETAM 5/325 MG TABLET PO STA (19:59)
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
== END 2022-07-02 20:39 | disposition home or self-care (01) ==
LOC: ED 17:39
DX: S16.1XXA Strain of muscle, fascia and tendon at neck level, initial encounter (principal); S39.012A Strain of muscle, fascia and tendon of lower back, initial encounter; V43.52XA Car driver injured in collision with other type car in traffic accident, initial encounter; F17.200 Nicotine dependence, unspecified, uncomplicated
CPT/HCPCS: 99282; A9270